=== PATIENT | male | born 1950 | race Caucasian/White ===

== ENCOUNTER 2025-01-08 07:43 | Inpatient (IN) | payer MEDICARE, OTHER ==
[~2025-01-08] VITALS: Ht 172.7 cm; Wt 108.9 kg
[2025-01-08] MEDS ORDERED: LIDOCAINE 2%-EPI 1:100,000 30 ML VIAL ONE (08:40)
[2025-01-08] MEDS ORDERED: OXYMETAZOLINE HCL NASAL SPRAY 30 ML BOTTLE NS ONE (08:40)
[2025-01-08] MEDS ORDERED: dexaMETHasone SOD PHOSPHATE 1 ML ONE (08:40)
[2025-01-08] MEDS ORDERED: VANCOMYCIN 1 GM VIAL ONE (08:40)
[2025-01-08] MEDS ORDERED: ROCURONIUM BROMIDE 50 MG/5 ML ONE (08:48)
[2025-01-08] MEDS ORDERED: FENTANYL PF 250MCG/5ML AMPUL ONE (08:48)
[2025-01-08] MEDS ORDERED: LABETALOL 20 MG/4 ML VIAL ONE (09:25)
[2025-01-08] MEDS ORDERED: ONDANSETRON HCL/PF 4 MG/2 ML VIAL IV PRN (12:00)
[2025-01-08] MEDS ORDERED: ACETAMINOPHEN 325 MG TABLET PO PRN (12:00)
[2025-01-08] MEDS: IV NS 0.9% 1,000 ML IV PRN (12:10)
[2025-01-08] MEDS ORDERED: ERGO500093 PO (12:38)
[2025-01-08] MEDS ORDERED: SACU1TAB4 PO (12:38)
[2025-01-08] MEDS ORDERED: TERA10CA4 PO (12:38)
[2025-01-08] MEDS ORDERED: EMPA25TA PO (12:38)
[2025-01-08] MEDS ORDERED: GABA300C PO (12:38)
[2025-01-08] MEDS ORDERED: CARV12.52 PO (12:38)
[2025-01-08] MEDS ORDERED: INSU100I24 SQ (12:38)
[2025-01-08] MEDS ORDERED: LIPA1CAP15 PO (12:38)
[2025-01-08] MEDS: HYDROMORPHONE 1 MG/1 ML DISP.SYRIN IV PRN (14:43)
[2025-01-08 16:00] VITALS: BP_SYST 121; BP_SYST 93; BP_DIAS 42; BP_DIAS 55; TEMP 97.2; TEMP 98.4; O2SAT 96
[2025-01-08 20:00] VITALS: BP 137/70; TEMP 98.4; O2SAT 98
[2025-01-08 20:27] VITALS: BP 137/70; TEMP 98.4; O2SAT 98
[2025-01-08] MEDS: VANCOMYCIN 1 GM in IV D5W 250ml IV SCH (20:47)
[2025-01-08] MEDS: GABAPENTIN 300 MG CAPSULE PO ONE (22:41)
[2025-01-08] MEDS: TERAZOSIN HCL 5 MG CAPSULE PO ONE (22:41)
[2025-01-08] MEDS: PANTOPRAZOLE 40 MG TABLET.DR PO ONE (22:41)
[2025-01-08 23:46] VITALS: BP 130/71; O2SAT 98
[2025-01-09 07:00] VITALS: BP 104/51; TEMP 98.6; O2SAT 96
== END 2025-01-09 13:30 | disposition home or self-care (01) | DRG 141 ==
LOC: DS 07:43 → MED 11:59
PROVIDERS: ADMIT Internal Medicine; ATTEND Internal Medicine
PROC: 0NUT07Z Supplement Right Mandible with Autologous Tissue Substitute, Open Approach (ICD-10-PCS; principal; 2025-01-08 09:30)
PROC: 0NUV07Z Supplement Left Mandible with Autologous Tissue Substitute, Open Approach (ICD-10-PCS; principal; 2025-01-08 09:30)
PROC: 0NUR07Z Supplement Maxilla with Autologous Tissue Substitute, Open Approach (ICD-10-PCS; principal; 2025-01-08 09:30)
PROC: 0N5R0ZZ Destruction of Maxilla, Open Approach (ICD-10-PCS; principal; 2025-01-08 09:30)
PROC: 0N5T0ZZ Destruction of Right Mandible, Open Approach (ICD-10-PCS; principal; 2025-01-08 09:30)
PROC: 0NSR04Z Reposition Maxilla with Internal Fixation Device, Open Approach (ICD-10-PCS; principal; 2025-01-08 09:30)
PROC: 0N5V0ZZ Destruction of Left Mandible, Open Approach (ICD-10-PCS; principal; 2025-01-08 09:30)
PROC: 0NHT04Z Insertion of Internal Fixation Device into Right Mandible, Open Approach (ICD-10-PCS; principal; 2025-01-08 09:30)
PROC: 0NHV04Z Insertion of Internal Fixation Device into Left Mandible, Open Approach (ICD-10-PCS; principal; 2025-01-08 09:30)
DX: S02.40DA Maxillary fracture, left side, initial encounter for closed fracture (principal); S02.81XA Fracture of other specified skull and facial bones, right side, initial encounter for closed fracture; S02.609A Fracture of mandible, unspecified, initial encounter for closed fracture; M27.2 Inflammatory conditions of jaws; J32.0 Chronic maxillary sinusitis; S02.40CA Maxillary fracture, right side, initial encounter for closed fracture; D16.4 Benign neoplasm of bones of skull and face; X58.XXXA Exposure to other specified factors, initial encounter; Y92.9 Unspecified place or not applicable; I11.0 Hypertensive heart disease with heart failure; E11.9 Type 2 diabetes mellitus without complications; I50.9 Heart failure, unspecified
CPT/HCPCS: 82962-TC; A4338; C1713; G0378; J0461; J0690; J1100; J1171; J2704; J3010; J3373; J3490; J7030; J7050; J7060